=== PATIENT | female | born 1990 | race Two or more races ===

== ENCOUNTER 2020-04-18 11:16 | Emergency (ER) | payer OTHER ==
[~2020-04-18] VITALS: Ht 170.2 cm; Wt 68.2 kg
[~2020-04-18 11:16] MED LIST: NO MEDICATIONS
[2020-04-18 11:57] LABS: MICROSCOPIC NOT IND
--- NOTE | 2020-04-18 12:45 | NUR ---
PT IN BED, NO DISTRESS, VSS, GAVE IS.
[2020-04-18 13:25] VITALS: BP 115/66
--- NOTE | 2020-04-18 13:25 | NUR ---
BREAK RN: KIKI IN ROOM FOR UPDATE, PT TBDC.
== END 2020-04-18 14:05 | disposition home or self-care (01) ==
LOC: ED 12:56
DX: G89.11 Acute pain due to trauma (principal); M54.5 Low back pain; R07.89 Other chest pain; V59.9XXA Occupant (driver) (passenger) of pick-up truck or van injured in unspecified traffic accident, initial encounter; Y93.89 Activity, other specified; Y92.89 Other specified places as the place of occurrence of the external cause; Y99.8 Other external cause status
CPT/HCPCS: 81003; 99284